=== PATIENT | male | born 1985 | race Caucasian/White ===

== ENCOUNTER 2024-04-19 10:29 | Outpatient (CLI) | payer OTHER, SELFPAY ==
--- NOTE | ~2024-04-19 | MR_ITS ---
MRI of the cervical spine Clinical History: Cervicalgia Technique: Axial T2-weighted and gradient images, and sagittal T1-weighted, T2-weighted, and STIR aric ges were acquired. Findings: There is no fracture or subluxation of the cervical spine. Vertebral bodies maintain normal height and alignment. No suspicious bone marrow signal abnormality seen. At C2-C3, there is no disc bulge or herniation. No spinal canal stenosis, cord compression, or neural foraminal narrowing. At C3-C4, there is no disc bulge or herniation. No spinal canal stenosis, cord compression, or neural foraminal narrowing. At C4-C5, there is no disc bulge or herniation. No spinal canal stenosis, cord compression, or neural foraminal narrowing. At C5-C6, there is no disc bulge or herniation. No spinal canal stenosis, cord compression, or neural foraminal narrowing. At C6-C7, there is minimal disc osteophyte complex. No spinal canal stenosis, cord compression, or ne ural foraminal narrowing. No abnormal signal seen in the spinal cord. Paravertebral soft tissues are unremarkable. Impression: Minimal degenerative change, as above. Reviewed, dictated and finalized at location . Impression: Minimal degenerative change, as above.
== END 2024-04-19 10:30 ==
PROVIDERS: PCP Family Medicine; Visit Provider Family Medicine
DX: G56.20 Lesion of ulnar nerve, unspecified upper limb (principal); G56.03 Carpal tunnel syndrome, bilateral upper limbs; M54.2 Cervicalgia
CPT/HCPCS: 72141